=== PATIENT | male | born 2000 | race Caucasian/White ===

== ENCOUNTER 2019-07-26 13:37 | Emergency (ER) | payer OTHER, SELFPAY ==
[2019-07-26 13:45] VITALS: BP 178/94; PULSE 94; RESP 14; TEMP 37.2; O2SAT 98; BMI 33.2
--- NOTE | 2019-07-26 13:50 | DI.RAD.S_ITS ---
PROCEDURE: XR CHEST 1V INDICATIONS: chest pain TECHNIQUE: One view of the chest was acquired. COMPARISON: [facility], CR, XR CHEST 2VW, 08/06/2015, 12:49. [facility], CR, XR CHEST 2 VIEWS, 06/29/2019, 17:19. FINDINGS: Surgical changes and devices: None. Lungs and pleura: Lungs are clear. No pleural effusions or pneumothorax. Mediastinum: Mediastinal contours appear normal. Heart size is normal. Bones and chest wall: No suspicious bony lesions. Overlying soft tissues appear unremarkable. IMPRESSION: 1. No acute cardiopulmonary disease. Dictated by: Brad Roca M.D. on 07/26/2019 at 13:20 Approved by: Brad Roca M.D. on 07/26/2019 at 13:21
[2019-07-26] MEDS: MAG HYDROX/ALUMINUM/SIMETH SUS 20 ML, LIDOCAINE VISCOUS 2% 15 ML PO (13:56)
[2019-07-26 14:01] LABS: Add Manual Diff / Slide Review NO
--- NOTE | 2019-07-26 14:13 | ED_ITS ---
HPI - Chest Pain General Chief Complaint: Chest Pain Stated Complaint: chest pain Time Seen by Provider: 07/26/19 14:06 Source: patient Mode of arrival: Ambulatory Limitations: no limitations History of Present Illness HPI narrative: Patient is a 19-year-old male here for evaluation of chest pain. States that it woke him up at approximately 0300 hours in the morning. No fevers. Does have family history of cardiovascular disease. He states that is retrosternal running up and down his chest. Did try some Tums at home without any improvement. Related Data Home Medications Medication Instructions Recorded Confirmed No Known Home Medications 07/26/19 07/26/19 Allergies Allergy/AdvReac Type Severity Reaction Status Date / Time No Known Drug Allergies Allergy Verified 07/26/19 13:49 Review of Systems Constitutional Constitutional: Denies fever(s) ENT Ears, Nose, Mouth, and Throat: Denies neck pain Cardiovascular Cardiovascular: Reports chest pain and Denies dyspnea Respiratory Respiratory: Denies dyspnea Gastrointestinal Gastrointestinal: Denies abdominal pain, Denies nausea and Denies vomiting Genitourinary Genitourinary: Denies dysuria Musculoskeletal Musculoskeletal: Denies back pain and Denies neck pain Integumentary/Breasts Skin/Breast: Denies lesions and Denies rash Neurologic Neurologic: Denies behavioral changes Psychiatric Psychiatric: Denies behavioral changes Hematologic/Lymphatic Hematologic/Lymphatic: Denies easy bleeding and Denies easy bruising Patient History Medical History Healthy adult (Acute) Social History Smoking Status: Never smoker Smoking Status: Never smoker alcohol intake frequency: 0-2 drinks per day Substance Use Type: does not use Exam Initial Vital Signs Initial Vital Signs: Vital Signs Temperature 99.0 F 07/26/19 13:45 Pulse Rate 94 H 07/26/19 13:45 Respiratory Rate 14 07/26/19 13:45 Blood Pressure 178/94 H 07/26/19 13:45 Pulse Oximetry 98 07/26/19 13:45 Const General: cooperative, comfortable and well developed Limitations: mental status not altered HENMT Head: normal to inspection and normocephalic Resp Effort & Inspection: normal respiratory effort Auscultation: clear to auscultation bilaterally Cardio Rate: regular rate Rhythm: regular rhythm Skin Lesions: no lesions Rashes: no rashes Extrem General: normal to inspection and capillary refill normal Psych Appearance: grossly normal and well kempt Scores HEART Score Heart Score history: Slightly Suspicious Heart Score EKG: Normal Heart Score risk factors: No known risk factors Heart Score troponin: < or = to normal limit Course Orders Ordered: ED Orders 07/26/19 13:50 XR chest 1V Stat EKG-12 Lead Stat 07/26/19 14:15 Complete Blood Count AUTO DIFF Stat Comprehensive Metabolic Panel Stat Lipase Stat Partial Thromboplastin Time Stat Prothrombin Time INR Stat Troponin & CK Cardiac Panel Stat Discontinued Medications Al Hydrox/Mg Hydrox/Simethicone 20 ml/ Lidocaine HCl 15 ml 0 ml PO NOW ONE Stop: 07/26/19 13:54 Last Admin: 07/26/19 13:56 Dose: 35 ml Documented by: JEAN Vital Signs Vital signs: Vital Signs - 8 hr 07/26/19 13:45 07/26/19 14:31 Temperature 99.0 F Pulse Rate 94 H 101 H Respiratory Rate 14 16 Blood Pressure 178/94 H Blood Pressure [Left Arm] 167/99 H Pulse Oximetry 98 97 MDM - Chest Pain Lab Data Attestation: I reviewed the patient's lab results. Result diagrams: 07/26/19 14:15 07/26/19 14:15 Labs: Lab Results 07/26/19 07/26/19 07/26/19 Range/Units 14:15 14:15 14:15 WBC 8.8 (4.5-11.0) X10^3/uL RBC 5.73 (4.5-5.9) X10^6/uL Hgb 17.0 (13.5-17.5) g/dL Hct 49.8 (41-53) % MCV 86.9 (80-100) fL MCH 29.6 (26-34) PG MCHC 34.1 (30-36) % RDW 12.8 (11.6-14.8) % Plt Count 276 (150-400) X10^3/uL Neut % (Auto) 57.1 (50-75) % Lymph % (Auto) 32.0 (25-40) % Teller % (Auto) 8.5 (3-14) % Eos % (Auto) 1.4 L (2-4) % Baso % (Auto) 1.0 (0-2) % Neut # (Auto) 5000 (8150-4105) /uL Lymph # (Auto) 2800 (9512-4012) /uL Teller # (Auto) 800 (0-900) /uL Eos # (Auto) 100 (0-450) /uL Baso # (Auto) 100 (0-100) /uL PT 11.4 (10.1-12.7) SECONDS INR 1.0 (0.9-1.3) APTT (26.4-36.2) SECONDS Sodium 144 (137-145) mmol/L Potassium 4.1 (3.4-5.1) mmol/L Chloride 103 (98-107) mmol/L Carbon Dioxide 28 (22-32) mmol/L BUN 11 (9-20) mg/dL Creatinine 0.80 (0.66-1.25) mg/dL Estimated GFR > 60.0 (>60) mL/min BUN/Creatinine Ratio 13.8 (6-22) Glucose 87 (70-100) mg/dL Calcium 10.0 (8.4-10.2) mg/dL Total Bilirubin 0.4 (0.2-1.3) mg/dL AST 29 (17-59) IU/L ALT 24 (<50) IU/L Alkaline Phosphatase 61 (38-126) U/L Total Creatine Kinase 76 (55-170) U/L CK-MB (CK-2) TNP CK-MB (CK-2) Rel Index TNP Troponin I < 0.012 (0.01-0.034) ng/mL Total Protein 8.5 H (6.3-8.2) g/dL Albumin 5.3 H (3.5-5.0) g/dL Globulin 3.2 (1.7-4.1) g/dL Albumin/Globulin Ratio 1.7 (1.0-2.8) Lipase 39 (23-300) U/L Imaging Data Chest x-ray: Radiologist's Impression: [address] [address] XRay Report Signed Patient: Josafat CuevasMR#: [id number] : 2000Acct:[id number] Age/Sex: te of Service: 07/26/19 Loc: ED Accession Number: [id number] Procedure: XR chest 1V Ordering Provider: Fredrick Connor D.O. PROCEDURE: XR CHEST 1V INDICATIONS: chest pain TECHNIQUE: One view of the chest was acquired. COMPARISON: [facility], CR, XR CHEST 2VW, 08/06/2015, 12:49. [facility], CR, XR CHEST 2 VIEWS, 06/29/2019, 17:19. FINDINGS: Surgical changes and devices: None. Lungs and pleura: Lungs are clear. No pleural effusions or pneumothorax. Mediastinum: Mediastinal contours appear normal. Heart size is normal. Bones and chest wall: No suspicious bony lesions. Overlying soft tissues appear unremarkable. IMPRESSION: 1. No acute cardiopulmonary disease. Dictated by: Brad Roca M.D. on 07/26/2019 at 13:20 Approved by: Brad Roca M.D. on 07/26/2019 at 13:21 ECG Data Attestation: I personally reviewed and interpreted this ECG as follows: Prior ECG tracings: not available for review Interpretation: Sinus rhythm Ventricular rate of 105 Normal axis Normal QRS Normal QTC No ST T wave changes MDM Narrative Medical decision making narrative: Patient low risk for ACS, low risk heart score, nonischemic EKG, I do suspect this is GI. I did discuss this with the patient. We did discuss things that he could try at home for his symptoms. Discussed return precautions. He expressed understanding and agreement. Discharge Plan Departure Patient Disposition: Home Clinical Impression: Atypical chest pain Instructions: DI for Gastroesophageal Reflux Disease (GERD) Activity Restrictions/Additional Instructions: Recommend that you contact 360 help you establish a primary provid er. Also recommend that you initially try [id number] chewable tablets or liquid reflux medications like we discussed. This is not working you can move on to other medications such as Pepcid. Return to the emergency department for any new symptoms Prescriptions: No Action No Known Home Medications RF: 0
[2019-07-26 14:31] VITALS: BP 167/99; PULSE 101; RESP 16; O2SAT 97
[2019-07-26 14:58] LABS: Red Blood Cell Count 5.73 X10^6/uL (4.5-5.9); White Blood Cell Count 8.8 X10^3/uL (4.5-11.0)
[2019-07-26 14:59] LABS: Basophils Absolute Auto 100 /uL (0-100); Eosinophils Absolute Auto 100 /uL (0-450); Eosinophils Percent Auto 1.4 % (2-4); Hematocrit 49.8 % (41-53); Lymphocytes Absolute Auto 2800 /uL (1100-4500); Mean Corpuscular HGB Conc 34.1 % (30-36); Mean Corpuscular Hemoglobin 29.6 PG (26-34); Mean Corpuscular Volume 86.9 fL (80-100); Monocytes Absolute Auto 800 /uL (0-900); Monocytes Percent Auto 8.5 % (3-14); Neutrophils Absolute Auto 5000 /uL (1500-7000); Neutrophils Percent Auto 57.1 % (50-75); Platelet Count 276 X10^3/uL (150-400); Red Cell Distribution Width 12.8 % (11.6-14.8)
[2019-07-26 15:01] LABS: Prothrombin Time 11.4 SECONDS (10.1-12.7)
[2019-07-26 15:05] LABS: HEMOLYSIS < 15 (0-50)
[2019-07-26 15:18] LABS: Alanine Aminotransferase 24 IU/L (<50); Albumin 5.3 g/dL (3.5-5.0); Albumin Globulin Ratio 1.7 (1.0-2.8); Alkaline Phosphatase 61 U/L (38-126); Aspartate Aminotransferase 29 IU/L (17-59); BUN Creatinine Ratio 13.8 (6-22); Bilirubin Total 0.4 mg/dL (0.2-1.3); Blood Urea Nitrogen 11 mg/dL (9-20); Carbon Dioxide 28 mmol/L (22-32); Chloride 103 mmol/L (98-107); Creatine Kinase 76 U/L (55-170); Estimated Glomerular Filt Rate > 60.0 mL/min (>60); Globulin 3.2 g/dL (1.7-4.1); Glucose 87 mg/dL (70-100); Lipase 39 U/L (23-300); Potassium 4.1 mmol/L (3.4-5.1); Sodium 144 mmol/L (137-145); Total Protein 8.5 g/dL (6.3-8.2); Troponin I < 0.012 ng/mL (0.01-0.034)
[2019-07-26 15:28] VITALS: PULSE 80; RESP 16; O2SAT 99
== END 2019-07-26 15:29 | disposition home or self-care (01) ==
PROVIDERS: Emergency Provider Emergency Medicine
DX: R07.89 Other chest pain (principal)
CPT/HCPCS: 36415; 71045; 80053; 82550; 83690; 84484; 85025; 85610; 85730; 93005; 99284